=== PATIENT | male | born 1975 | race Caucasian/White ===

== ENCOUNTER 2017-10-18 10:47 | Emergency (ER) | payer OTHER ==
[~2017-10-18] VITALS: Ht 182.9 cm; Wt 140.9 kg
[~2017-10-18 10:47] MED LIST: NO HOME MEDICATIONS
[2017-10-18 10:49] VITALS: BP 162/87; TEMP 98.1
[2017-10-18] MEDS ORDERED: PRINIVIL40 MG PO (10:52)
[2017-10-18 11:42] LABS: STREP SCREEN NEGATIVE
[2017-10-18 11:50] LABS: INFLUENZA A NEGATIVE; INFLUENZA B NEGATIVE
[2017-10-18] MEDS ORDERED: AMOXICILLIN 8751 TAB PO (12:12)
[2017-10-18 12:55] VITALS: PULSE 84
== END 2017-10-18 12:56 | disposition home or self-care (01) ==
LOC: COL.ER 10:47
PROVIDERS: Physician Assistant
DX: K12.2 Cellulitis and abscess of mouth (principal); I10 Essential (primary) hypertension; Z89.022 Acquired absence of left finger(s)
CPT/HCPCS: J8540

== ENCOUNTER 2018-02-17 07:46 | Emergency (ER) | payer OTHER ==
[~2018-02-17] VITALS: Ht 182.9 cm; Wt 146.4 kg
[~2018-02-17 07:46] MED LIST changes: +AMOXICILLIN 8751 TAB PO; +PRINIVIL40 MG PO
[2018-02-17 07:51] VITALS: BP 176/89; TEMP 98.1
[2018-02-17] MEDS ORDERED: DOXYCYCLINE HY100 MG PO (08:43)
[2018-02-17] MEDS ORDERED: FLONASEALLERGY NS (08:43)
[2018-02-17 08:54] VITALS: PULSE 79
== END 2018-02-17 08:55 | disposition home or self-care (01) ==
LOC: COL.ER 07:46
DX: J01.90 Acute sinusitis, unspecified (principal); R51 Headache; I10 Essential (primary) hypertension; E78.5 Hyperlipidemia, unspecified; E66.9 Obesity, unspecified; Z68.41 Body mass index [BMI] 40.0-44.9, adult; Z89.022 Acquired absence of left finger(s)
CPT/HCPCS: J1885

== ENCOUNTER 2018-05-17 16:24 | Emergency (ER) | payer OTHER ==
[~2018-05-17] VITALS: Ht 182.9 cm; Wt 152.3 kg
[~2018-05-17 16:24] MED LIST changes: +DOXYCYCLINE HY100 MG PO; +FLONASEALLERGY NS
[2018-05-17 16:41] VITALS: BP 136/70; TEMP 98.8
[2018-05-17 17:48] LABS: BASO # 0.1 (0.0-0.2); EOS # 0.6 (0.0-0.7); EOS % 6.1 % (0-4.0); GRAN # 5.5 (1.4-6.5); GRAN % 56.1 % (42.2-75.2); HEMATOCRIT 46.9 % (42.0-52.0); HEMOGLOBIN 15.7 g/dl (13.5-18.0); LYMPH # 2.4 (1.2-3.4); MEAN CELL VOLUME 87 fl (80.0-100.0); MEAN CORPUSCULAR HEMOGLOBIN 29 pg (27.0-31.0); MEAN CORPUSCULAR HGB CONC 34 g/dl (33.0-37.0); MEAN PLATELET VOLUME 11.4 fl (7.4-10.4); MONO # 1.1 (0.1-0.6); PLATELET COUNT 184 K/mm3 (130-400); RED BLOOD COUNT 5.41 M/mm3 (4.20-5.60); REDCELL DISTRIBUTION WIDTH-CV 12.8 % (11.5-14.5)
[2018-05-17 18:03] LABS: ALBUMIN 3.5 gm/dL (3.5-5.0); BILIRUBIN,TOTAL 0.4 mg/dL (0.0-1.0); C-REACTIVE PROTEIN 1.2 mg/dL (0.0-0.9); CALCIUM 8.6 mg/dL (8.4-10.2); CREATININE, serum 0.96 mg/dL (0.66-1.25); POTASSIUM 3.7 mmol/L (3.4-5.0); TOTAL PROTEIN 6.1 gm/dL (6.4-8.2)
[2018-05-17] MEDS ORDERED: DOXYCYCLINE 10100 MG PO (19:36)
[2018-05-17 20:09] VITALS: PULSE 70
== END 2018-05-17 19:50 | disposition home or self-care (01) ==
LOC: COL.ER 16:24
PROVIDERS: Emergency Medicine
DX: L03.116 Cellulitis of left lower limb (principal); I10 Essential (primary) hypertension